=== PATIENT | female | born 1950 | race Caucasian/White ===

== ENCOUNTER → 2021-08-18 | Outpatient (CLI) | payer MEDICARE | LOC: M RAD 07:41 | PROVIDERS: ATTEND Family Medicine | DX: Z12.2 Encounter for screening for malignant neoplasm of respiratory organs (principal); F17.210 Nicotine dependence, cigarettes, uncomplicated ==

== ENCOUNTER → 2021-10-29 | Outpatient (CLI) | payer OTHER | LOC: M RAD 10:00 | DX: S13.0XXA Traumatic rupture of cervical intervertebral disc, initial encounter (principal); M48.02 Spinal stenosis, cervical region; M25.78 Osteophyte, vertebrae ==

== ENCOUNTER → 2022-12-14 | Outpatient (CLI) | payer MEDICARE | LOC: M RAD 06:58 | PROVIDERS: ATTEND Family Medicine | DX: Z12.2 Encounter for screening for malignant neoplasm of respiratory organs (principal); F17.210 Nicotine dependence, cigarettes, uncomplicated ==

== ENCOUNTER → 2023-03-24 | Outpatient (CLI) | payer MEDICARE | LOC: M RAD 13:26 | PROVIDERS: ATTEND Podiatrist Foot & Ankle Surgery | DX: I73.89 Other specified peripheral vascular diseases (principal) ==

== ENCOUNTER → 2023-07-27 | Outpatient (CLI) | payer MEDICARE ==
[~2023-07-27] MED LIST: PROHANCE 279.3MG/ML 5ML VIAL ONE
== END ==
LOC: M PLAIMG 08:52
PROVIDERS: ATTEND Nurse Practitioner Family
DX: R78.81 Bacteremia (principal); B95.61 Methicillin susceptible Staphylococcus aureus infection as the cause of diseases classified elsewhere; M51.44 Schmorl's nodes, thoracic region; M46.24 Osteomyelitis of vertebra, thoracic region
CPT/HCPCS: 72157; A9576

== ENCOUNTER 2023-12-14 15:27 | Emergency (ER) | payer MEDICARE ==
[~2023-12-14] VITALS: Ht 162.6 cm; Wt 45.9 kg
[2023-12-14 15:29] VITALS: BP 144/65; TEMP 97.3; O2SAT 97
== END 2023-12-14 15:35 | disposition left against medical advice (07) ==
LOC: M ED 15:27
DX: Z53.21 Procedure and treatment not carried out due to patient leaving prior to being seen by health care provider (principal)

== ENCOUNTER 2023-12-16 08:36 | Emergency (ER) | payer MEDICARE ==
[~2023-12-16] VITALS: Ht 162.6 cm; Wt 46.2 kg
[2023-12-16] MEDS ORDERED: CLOP75TA2 PO (08:55)
[2023-12-16] MEDS ORDERED: ROSU10TA61 PO (08:55)
[2023-12-16] MEDS ORDERED: TOPA100T12 PO (08:55)
[2023-12-16] MEDS ORDERED: XARE2.5T PO (08:55)
[2023-12-16] MEDS ORDERED: TRIL600T PO (08:55)
[2023-12-16 09:12] VITALS: TEMP 96.9
[2023-12-16] MEDS: ONDANSETRON 4MG 2ML VIAL IV ONE (10:01)
[2023-12-16] MEDS: fentaNYL 100 MCG/2 ML INJECTION IV PRN ×2 (10:01→16:52)
[2023-12-16 10:07] LABS: BASO % 0.3 % (0.0-1.0); EOS # 0.1 10^3/uL (0.0-0.5); EOS % 0.8 % (0.0-3.0); HEMATOCRIT 36.1 % (36.0-47.0); HEMOGLOBIN 12.3 g/dl (12.0-15.5); LYMPH # 1.6 10^3/uL (1.5-5.0); LYMPH % 23.2 % (24.0-44.0); MEAN CORPUSCULAR HGB CONC 34.1 g/dl (32.0-36.5); MEAN CORPUSCULAR VOLUME 96.8 fl (80.0-96.0); MONO # 0.6 10^3/uL (0.0-0.8); MONO % 9.1 % (2.0-8.0); NEUTROPHILS # 4.7 10^3/uL (1.5-8.5); NEUTROPHILS % 66.3 % (36.0-66.0); PLATELET COUNT, AUTOMATED 328 10^3/uL (150-450); RED BLOOD COUNT 3.73 10^6/uL (4.00-5.40); WHITE BLOOD COUNT 7.1 10^3/uL (4.0-10.0)
[2023-12-16 10:23] LABS: ERYTHROCYTE SEDIMENTATION RATE 45 mm/hr (0-30)
[2023-12-16 10:29] LABS: BLOOD UREA NITROGEN 20 MG/DL (9-23); CALCIUM LEVEL 9.2 MG/DL (8.3-10.6); CARBON DIOXIDE LEVEL 24 MMOL/L (20-31); CHLORIDE LEVEL 108 MMOL/L (98-107); CREATININE FOR GFR 0.51 MG/DL (0.55-1.30); GLOMERULAR FILTRATION RATE > 60.0 (>39); GLUCOSE, FASTING 95 MG/DL (74-106); POTASSIUM SERUM 3.9 MMOL/L (3.5-5.1); SODIUM LEVEL 139 MMOL/L (136-145)
[2023-12-16 10:36] LABS: PROCALCITONIN <0.04 ng/ml
[2023-12-16] MEDS: ACETAMINOPHEN *IV* 500 MG in IV 1 EA IV ONE (11:08)
[2023-12-16] MEDS: CYCLOBENZAPRINE 5MG TABLET PO ONE (11:09)
[2023-12-16] MEDS: NS 1,000 ML IV ONE (11:49)
[2023-12-16] MEDS ORDERED: MV M PO (15:05)
[2023-12-16] MEDS ORDERED: VITA500C3 PO (15:05)
[2023-12-16] MEDS ORDERED: HOME MED LIST COMPLETE! XX SCH (15:05)
[2023-12-16] MEDS ORDERED: VITA1CHW7 PO (15:05)
[2023-12-16] MEDS ORDERED: COLA100C5 PO (16:50)
[2023-12-16] MEDS ORDERED: CYCL5TAB PO (16:50)
[2023-12-16 17:15] VITALS: BP 156/66; O2SAT 95
== END 2023-12-16 17:38 | disposition home or self-care (01) ==
LOC: M ED 08:36
DX: M54.50 Low back pain, unspecified (principal); N28.1 Cyst of kidney, acquired; M51.46 Schmorl's nodes, lumbar region; M51.36 Other intervertebral disc degeneration, lumbar region; M48.061 Spinal stenosis, lumbar region without neurogenic claudication; E78.5 Hyperlipidemia, unspecified; I10 Essential (primary) hypertension; Z79.899 Other long term (current) drug therapy
CPT/HCPCS: 71045; 71250; 72128; 72131; 72146; 72148; 80047; 80048; 84145; 85025; 85652; 86140; 93041; 96365; 96366; 96375; 96376; 99285; J0131; J2405; J3010